=== PATIENT | female | born 1965 | race African-American/Black ===

== ENCOUNTER 2018-04-23 13:58 | Emergency (ER) | payer SELFPAY | END 2018-04-23 18:26 | disposition left against medical advice (07) | LOC: FTE 13:58 | DX: Z53.21 Procedure and treatment not carried out due to patient leaving prior to being seen by health care provider (principal) ==

== ENCOUNTER 2018-04-24 12:49 | Emergency (ER) | payer MEDICARE, OTHER ==
[2018-04-24] MEDS: IBUPROFEN 200 MG TAB PO (16:34)
[2018-04-24] MEDS: CEPHALEXIN 500 MG CAP PO (16:34)
[2018-04-24] MEDS: TRIMETHOPRIM/SULFAMETHOX (DS) TAB PO (16:34)
== END 2018-04-24 16:35 | disposition home or self-care (01) ==
LOC: FTE 12:49
DX: L02.416 Cutaneous abscess of left lower limb (principal)
CPT/HCPCS: 99284